=== PATIENT | female | born 1935 | race Caucasian/White ===

== ENCOUNTER 2019-06-06 07:05 | Inpatient (IN) ==
[2019-06-06] MEDS ORDERED: CATAPRES PO PRN (07:32)
[2019-06-06 08:38] LABS: ALLEN TEST YES; BE 1.7 mmoll (-3.0-3.0); BLOOD TYPE ARTERIAL; HCO3-(ACT) 26.2 mmoll (20.0-26.0); METHB 0.4 % (0.0-1.5); O2(CT) 16.9 mL/dL (15.0-23.0); O2HB 93.3 % (95.0-99.0); PCO2(98.6) 48 mmHg (35-45); PO2(98.6) 66 mmHg (60-100); SAMPLE BLOOD; SAO2 97.6 % (95.0-100.0); THB 12.9 g/dL (11.5-17.4); pH(98.6) 7.37 (7.35-7.45)
[2019-06-06 08:39] LABS: MODALITY ROOM AIR
--- NOTE | 2019-06-06 08:53 | EKG Report ---
Test Performed on : 06/06/2019 08:51:10 AM Test Reason : CHF Blood Pressure : / mmHG Vent. Rate : 062 BPM Atrial Rate : 062 BPM P-R Int : 190 ms QRS Dur : 088 ms QT Int : 432 ms P-R-T Axes : 050 -13 034 degrees QTc Int : 438 ms Normal sinus rhythm. Minimal voltage criteria for LVH, may be normal variant Borderline ECG When compared with ECG of 26-NOV-2009 10:34, No significant change was found Unconfirmed Result
--- NOTE | 2019-06-06 09:09 | PROGRESS NOTE ---
DATE: 06/06/2019 Ms. Lynne who is an 83-year-old white female who is admitted with shortness of breath. She is obese, and has longstanding hypertension. She has acute diastolic CHF. ProBNP was elevated. We will keep her on telemetry and get blood work and a chest x-ray as well as echocardiogram on her. cc: Alvaro Butt MD
--- NOTE | 2019-06-06 09:12 | HISTORY AND PHYSICAL ---
HISTORY OF PRESENT ILLNESS: Ms. Lynne is an 83-year-old white female, who comes to the office with shortness of breath. She was found to be in congestive heart failure. ProBNP was elevated. She had pulmonary edema. She went home, and she comes back today with again, the same symptoms of shortness of breath. She denies having any chest pains. She is a known case of longstanding hypertension for many, many years, has been on multiple medications for hypertension, and has severe osteoarthritis in both knees as well as the lumbar spine. PAST SURGICAL HISTORY: History of total left knee replacement, and she is now a candidate for right knee total knee replacement. However, on account of shortness of breath, she cannot get that. She had bladder repair, as well as partial, and later on total hysterectomy. SOCIAL HISTORY: She is a nonsmoker, does not drink. ALLERGIES: She is not allergic to any medications. REVIEW OF SYSTEMS: Other than shortness of breath, it is noncontributory. PHYSICAL EXAMINATION: GENERAL: The patient is alert and oriented. There is no evidence of lymphadenopathy, thyroid enlargement, pedal edema, calf tenderness, anemia, cyanosis, or clubbing. Pedal pulses well felt. VITAL SIGNS: Temperature normal, pulse 59 per minute, respiratory rate 18 per minute, blood pressure 154/61. HEENT: Head normocephalic. Pupils PERRLA. Fundus examination reveals grade 2 change of hypertensive retinopathy. ENT examination unremarkable. NECK: Supple. JVP normal. BREASTS: Normal. CHEST: Normal inspection. LUNGS: Bilateral basal rales with occasional wheezing. PMI cannot be located. HEART: Sounds normal. No murmur, gallop, or rub noted. ABDOMEN: Obese. Hernial orifices normal. Revealed some scars from previous surgery. No guarding, rigidity, free fluid, masses, or organomegaly. Bowel sounds normal. RECTAL: Deferred. CENTRAL NERVOUS SYSTEM: Higher functions normal. Cranial nerves normal. Motor and sensory system examination unremarkable. Deep tendon reflexes normal. Plantars downgoing. Spine examination normal for age. No cerebellar signs or signs of meningeal irritation. LOCOMOTOR/SKIN: Unremarkable. CLINICAL IMPRESSION: Congestive heart failure, which is hypertensive heart failure. This is probably acute diastolic congestive heart failure. We will try to get the echocardiogram, and continue with Lasix intravenous. Keep her on telemetry. cc: Alvaro Butt MD
--- NOTE | 2019-06-06 09:48 | Diag Imaging Result Doc PS360 ---
EXAM: CHEST-2 VIEWS 06/06/2019 HISTORY: CHF TECHNIQUE: PA and lateral chest COMMENT: There is cardiomegaly. The lungs are better expanded than on 05/30/2019. There is some increased interstitial markings particularly in the lung bases. This has improved since the previous study. IMPRESSION: Improved pulmonary edema. Electronically signed by Johnny Chaparro 06/06/2019 9:46 AM
[2019-06-06 10:18] LABS: BASO# 0.05 X1000 (0.0-0.2); BASO% 0.6 % (0.0-0.8); EOS# 0.24 X1000 (0.0-0.7); HEMATOCRIT 38.7 % (37.0-47.0); HEMOGLOBIN 12.5 g/dL (12.0-16.0); IMM GRAN# 0.04 X1000 (0.0-0.04); IMM GRAN% 0.5 % (0.0-0.5); LYMPH# 2.47 X1000 (1.2-3.4); LYMPH% 31.2 % (20.5-51.1); MCH 27.5 PG (27-31); MCHC 32.3 g/dL (33-37); MCV 85.2 FL (81-99); MONO# 0.54 X1000 (0.11-0.59); MONO% 6.8 % (1.7-9.3); MPV 9.8 FL (7.4-10.4); NEUT# 4.57 X1000 (1.4-6.5); NEUT% 57.9 % (42.2-75.2); PLT 194 X1000 (130-400); RBC 4.54 XMIL (4.2-5.4); RDW 13.7 % (11.5-14.5); WBC 7.91 X1000 (4.8-10.8)
[2019-06-06] MEDS: LOPRESSOR PO SCH ×2 (10:22→20:21)
[2019-06-06] MEDS: PRINZIDE 20/12.5MG PO SCH ×2 (10:22→20:21)
[2019-06-06] MEDS: LASIX IV SCH (10:24)
[2019-06-06 10:37] LABS: ALB/GLOB RATIO 1.3; ALBUMIN 3.7 g/dL (3.5-5.0); CALCIUM 8.6 mg/dL (8.8-10.2); POTASSIUM 4.3 mmol/L (3.5-5.1); TOTAL BILIRUBIN 0.38 mg/dL (0.20-1.00); TOTAL PROTEIN 6.6 g/dL (6.3-8.3)
--- NOTE | 2019-06-06 19:16 | ECHO REPORT ---
ORDER DATE: 06/06/2019 MEASUREMENTS: Septal thickness 1.3, left ventricular internal diameter in diastole 4.6, posterior wall thickness 1.3, left ventricular internal diameter in systole 2.6, aortic root 2.9, left atrium 4.4. SUMMARY: 1. Adequate quality study. 2. The aortic valve is trileaflet and opens normally on 2-dimensional images. The peak gradient across the aortic valve is less than 10 mmHg. There is mild aortic regurgitation. Mild mitral annular calcification is demonstrated, with mild mitral regurgitation. 3. Tricuspid and pulmonic valves are without evidence of structural abnormality with trace tricuspid regurgitation. The aortic root is normal in size. 4. Normal left ventricular chamber size with mild concentric left ventricular hypertrophy is suggested. The estimated left ventricular ejection fraction appears to be at least 65%. No regional wall motion abnormalities are evident. Doppler suggests grade 1 left ventricular diastolic dysfunction. The left atrium is mildly enlarged. The right atrium and right ventricle are normal in size with normal right ventricular systolic function. 5. No pericardial effusion. 6. Appearance of the inferior vena cava suggests normal central venous pressure. CONCLUSIONS: 1. Mild aortic regurgitation. 2. Mild mitral annular calcification with mild mitral regurgitation. 3. Mild concentric left ventricular hypertrophy with estimated ejection fraction at least 65%. 4. Grade 1 left ventricular diastolic dysfunction is suggested. 5. Mild left atrial enlargement. cc: MD Alvaro Kelsey MD
[2019-06-06 19:42] LABS: URINE SOURCE CLEAN CATCH
[2019-06-06 19:45] LABS: BILIRUBIN URINE NEGATIVE (NEGATIVE); BLOOD URINE NEGATIVE (NEGATIVE); COLOR STRAW; GLUCOSE URINE NEGATIVE (NEGATIVE); KETONE URINE NEGATIVE (NEGATIVE); LEUKOCYTES URINE TRACE (NEGATIVE); NITRITE URINE NEGATIVE (NEGATIVE); PROTEIN URINE NEGATIVE (NEGATIVE); TURBIDITY URINE CLEAR (CLEAR); UR EPITHELIAL CELLS <10 /HPF (<10); URINE BACTERIA NEGATIVE /HPF; URINE RBC <10 /HPF (<10); URINE WBC <10 /HPF (<10); UROBILINOGEN URINE NORMAL (NORMAL)
[2019-06-06] MEDS: REQUIP PO SCH (20:21)
[2019-06-06] MEDS: PERCOCET-5 PO PRN (20:25)
[2019-06-07] MEDS: PRINZIDE 20/12.5MG PO SCH ×2 (08:34→21:04)
[2019-06-07] MEDS: LOPRESSOR PO SCH ×2 (08:34→21:04)
[2019-06-07] MEDS: LASIX IV SCH (08:34)
--- NOTE | 2019-06-07 09:33 | PROGRESS NOTE ---
DATE: 06/07/2019 SUBJECTIVE: Mrs. Lynne is doing better. Her lungs are less congested. Chest x-ray shows improvement. Electrolytes are stable. I am going to repeat them again tomorrow. Her urine culture has been pending. ProBNP has come down from 1000 to 656. Echocardiogram reveals mild aortic regurgitation, mild mitral annular calcification with mild mitral regurgitation. The EF of about 65% with mild concentric left ventricular hypertrophy and early diastolic dysfunction. We will continue with the current management, probably discharge her in the morning. cc: Alvaro Butt MD
[2019-06-07] MEDS: REQUIP PO SCH (21:04)
[2019-06-08 07:30] VITALS: BP 175/78
[2019-06-08 08:02] LABS: CALCIUM 8.6 mg/dL (8.8-10.2); CREATININE 0.9 mg/dL (0.5-0.9); POTASSIUM 3.8 mmol/L (3.5-5.1)
[2019-06-08] MEDS: LOPRESSOR PO SCH (08:28)
[2019-06-08] MEDS: LASIX IV SCH (08:28)
[2019-06-08] MEDS: PRINZIDE 20/12.5MG PO SCH (08:28)
[2019-06-08] MEDS: PERCOCET-5 PO PRN (08:39)
--- NOTE | 2019-06-08 11:21 | PROGRESS NOTE ---
DATE: 06/08/2019 Ms. Lynne is feeling better. Lungs are clear. Heart sounds are normal. Sodium is 129, which is probably secondary from Lasix therapy. We will discharge her today. -6 cc: Alvaro Butt MD
--- NOTE | 2019-06-09 08:40 | DISCHARGE SUMMARY ---
ADMISSION DATE: 06/06/2019 DISCHARGE DATE: 06/08/2019 HISTORY: Ms. Lynne is an 83-year-old white female comes with shortness of breath. She was found in congestive heart failure. ProBNP was above 1000. She was very symptomatic. DIAGNOSTIC DATA: In the hospital chest x-ray showed cardiomegaly with some pulmonary edema which was better as compared to the previous x-ray done 2 or 3 days ago. EKG had revealed regular sinus rhythm without any ischemic changes. Echocardiogram revealed the presence of mild aortic regurgitation and mild mitral annular calcification and mild mitral regurgitation, concentric left ventricular hypertrophy with EF of 65%. Some mild left atrial enlargement. Grade 1 left ventricular diastolic dysfunction was suggested. She was given IV Lasix and was continued her medications. Her blood pressure is still high. We will do Lasix p.r.n. and add clonidine on p.r.n. basis and she will be discharged today. FINAL DIAGNOSIS: 1. Congestive heart failure. 2. Acute mild diastolic dysfunction. 3. History of hypertension. 4. Severe osteoarthritis. 5. Obesity. FOLLOWUP: She will be seen in the office in about 7 days. cc: Alvaro Butt MD
== END 2019-06-08 10:21 | disposition home or self-care (01) | DRG 293 ==
LOC: 3N 07:05
PROVIDERS: ADMIT Internal Medicine; ATTEND Internal Medicine